=== PATIENT | female | born 1995 | race Caucasian/White ===

== ENCOUNTER 2016-11-02 15:22 | Inpatient (IN) | payer OTHER ==
[~2016-11-02] VITALS: Ht 177.8 cm; Wt 107.0 kg
[2016-11-02] VITALS (8 sets, daily range): BP systolic 126–141; BP diastolic 63–89
[2016-11-02] MEDS ORDERED: PRENTAB9 PO (15:31)
[2016-11-02] MEDS ORDERED: TUMS500C PO (15:33)
[2016-11-02] MEDS ORDERED: miSOPROStol 50 MCG 1/2 TAB (S0191) PV ONE (16:00)
[2016-11-02 17:02] LABS: MEAN CORPUSCULAR HEMOGLOBIN 32.3 pg (27.0-33.0); MEAN CORPUSCULAR HGB CONC 34.5 g/dl (32.0-36.5); MEAN CORPUSCULAR VOLUME 93.5 fl (80.0-96.0); RED CELL DISTRIBUTION WIDTH 12.8 % (11.5-14.5)
[2016-11-02] MEDS ORDERED: PENICILLIN G POTASSIUM IV 5 MU in D5W MINI-BAG PLUS 100 ML IV STA (17:35)
[2016-11-02] MEDS ORDERED: miSOPROStol 50 MCG 1/2 TAB (S0191) PO ONE (23:15)
[2016-11-03] VITALS (52 sets, daily range): BP systolic 111–153; BP diastolic 57–106
[2016-11-03] MEDS ORDERED: ACETAMINOPHEN 500 MG TAB PO ONE (02:00)
[2016-11-03] MEDS ORDERED: PROMETHAZINE INJ 25 MG/ML VIAL (J2550) IV ONE (06:00)
[2016-11-03] MEDS ORDERED: BUTORPHANOL 2 MG/ML INJ (J0595) IV ONE (06:00)
[2016-11-03] MEDS ORDERED: FENTANYL 2MCG/ML ROPIVACAINE 0.2% NACL 250 ML CADD As Ordered ONE (10:05)
[2016-11-03] MEDS: PENICILLIN G POTASSIUM IV 2.5 MU in D5W 100 ML IV SCH ×2 (11:07→14:44)
[2016-11-03] MEDS ORDERED: ePHEDrine SULFATE 25 MG/5 ML(5MG/ML) SYRINGE IV PRN (11:30)
[2016-11-03] MEDS ORDERED: EPIDURAL COMMENT XX SCH (11:30)
[2016-11-03] MEDS ORDERED: FENTANYL/ROPIVACAINE/NACL CADD 250 ML EPIDURAL SCH (11:30)
[2016-11-03] MEDS ORDERED: REFRIGERATOR IV KEYS XX PRN (11:30)
[2016-11-03] MEDS ORDERED: diphenhydrAMINE INJ 50MG/ML VIAL (J1200) IV PRN (11:30)
[2016-11-03] MEDS ORDERED: ONDANSETRON 4MG/2ML VIAL (J2405) IV PRN ×2 (11:30→20:30)
[2016-11-03] MEDS ORDERED: LACTATED RINGER'S 1000 ML IV PRN (11:30)
[2016-11-03] MEDS ORDERED: EPIDURAL/PCA KEYS XX PRN (11:30)
[2016-11-03] MEDS ORDERED: NALOXONE INJ 0.4 MG/1 ML VIAL (J2310) IV PRN (11:30)
[2016-11-03] MEDS ORDERED: LR 1,000 ML IV SCH (11:44)
[2016-11-03] MEDS ORDERED: OXYTOCIN DRIP 30 UNITS in APPROPRIATE DILUENT 1 EA IV SCH ×2 (11:45→20:28)
[2016-11-03] MEDS ORDERED: MEASLES,MUMPS,RUBELLA VACCINE INJ (MMR-II) (90707) SC SCH (20:30)
[2016-11-03] MEDS ORDERED: ACETAMINOPHEN 500 MG TAB PO PRN (20:30)
[2016-11-03] MEDS ORDERED: RHOGAM 300 MCG (1500 IU) INJ (J2790) IM SCH (20:30)
[2016-11-03] MEDS ORDERED: PROMETHAZINE 25 MG TAB PO PRN (20:30)
[2016-11-03] MEDS ORDERED: DIBUCAINE 1% OINTMENT 30GM TOP PRN (20:30)
[2016-11-03] MEDS: IBUPROFEN 800 MG TAB PO PRN (22:00)
[2016-11-03] MEDS: DOCUSATE SODIUM 100 MG CAP PO SCH (22:00)
[2016-11-04 06:21] VITALS: BP 122/75
[2016-11-04] MEDS: DOCUSATE SODIUM 100 MG CAP PO SCH ×2 (08:00→20:45)
[2016-11-04] MEDS: PRENATAL VITAMIN TAB PO SCH (08:01)
[2016-11-04 10:42] VITALS: BP 140/78
[2016-11-04] MEDS: IBUPROFEN 800 MG TAB PO PRN (16:25)
[2016-11-04 18:08] VITALS: BP 123/86
[2016-11-05 05:20] VITALS: BP 136/86
[2016-11-05] MEDS: PRENATAL VITAMIN TAB PO SCH (07:57)
[2016-11-05] MEDS: DOCUSATE SODIUM 100 MG CAP PO SCH (07:57)
--- NOTE | 2016-11-05 08:53 | IPNPDOC ---
Text Note Date of Service The patient was seen on 11/05/16. NOTE PPD#2 s/p S: Pt doing well. Pain well controlled, lochia decreasing/minimal, voiding spontaneously, tolerating a regular diet, ambulating without difficulty. No f/c /n/v/MOORE. Breast feeding with no problems. O: normotensive, nml HR, afebrile H: RRR no m/g/r L: CTA b/l no w/c/r/r Abd: soft, appropriately tender, and FF at U-2cm/fundus nontender Ext: no c/c/e A/P: S/p , PPD#2. Hemodynamically stable, afebrile, good pain control. -discharge to home today -given home meds prior to discharge -instructed to return to clinic in 1 week for a bp check and then a routine 6wk PP visit Dr. Khadijah Lou [place]ZAS VS,Julian, I+O VS, Julian, I+O Vital Signs Date Time Temp Pulse Resp B/P Pulse Ox O2 Delivery O2 Flow Rate FiO2 11/05/16 05:20 98.2 90 16 136/86 11/03/16 06:26 Room Air I&O- Last 24 Hours up to 6 AM 11/05/16 06:00 Intake Total 960 ml Balance 960 ml KHADIJAH LOU MD Nov 05, 2016 08:53
--- NOTE | 2016-11-05 09:00 | DS.PDOC ---
Discharge Summary General Date of Admission Nov 02, 2016 at 15:22 Date of Discharge Nov 05, 2016 Attending Physician: ARLYN JUDGE MD Discharge Summary PROCEDURES PERFORMED DURING STAY: uncomplicated spontaneous vaginal delivery ADMITTING DIAGNOSES: 1. Induction of labor for gestational hypertension at 39wk DISCHARGE DIAGNOSES: 1. Induction of labor for gestational hypertension at 39wk COMPLICATIONS/CHIEF COMPLAINT: Induction. HISTORY OF PRESENT ILLNESS/ HOSPITAL COURSE: Lauren is a 21 year old [id number] status post uncomplicated vaginal delivery at 39w4d after induction of labor for gestational hypertension. After admission, she met criteria for pre- eclampsia withOUT severe features based on proteinuria. She never required IV Mg and never developed any other symptoms of pre-eclampsia. She had a benign post- course with stable vitals and exam on discharge. DISCHARGE MEDICATIONS: tylenol/motrin/colace/lanolin ALLERGIES: Please see below. PHYSICAL EXAMINATION ON DISCHARGE: VITAL SIGNS: Please see below. GENERAL: WDWN, resting comfortably Cardiac: S1S2 present, no murmurs Lungs: CTAB, no wheeze/crackles/rhales Abdomen: soft, non-tender to palpation, fundus firm at u-2cm LABORATORY DATA: Please see below. IMAGING: none ACTIVITY: As tolerated DIET: regular, increase hydration since breast feeding DISCHARGE PLAN: discharge to home DISPOSITION: home DISCHARGE INSTRUCTIONS: 1. Return to clinic in 1 week for blood pressure check, then will have a 6 week visit 2. Vaginal rest for 6 weeks, no heavy lifting greater than weight of baby 3. Return sooner for: fevers/chills, heavy vaginal bleeding soaking >1 pad per hour, foul smelling vaginal discharge, headaches that do not go away with rest/ hydration/tylenol or sparklers in your vision DISCHARGE CONDITION: Stable TIME SPENT ON DISCHARGE: Greater than 20 minutes. Vital Signs/I&Os Vital Signs Date Time Temp Pulse Resp B/P Pulse Ox O2 Delivery O2 Flow Rate FiO2 11/05/16 05:20 98.2 90 16 136/86 11/03/16 06:26 Room Air I&O- Last 24 Hours up to 6 AM 11/05/16 06:00 Intake Total 960 ml Balance 960 ml Discharge Medications Scheduled Multivitamins/ ( 27-0.8 mg) 1 Tab Tab 1 TAB PO DAILY (Reported ) Miscellaneous Medications Calcium Carbonate (Tums) 500 Mg Chw 500 MG PO (Reported) Allergies Coded Allergies: No Known Allergies (Unverified , 11/02/16) ARLYN JUDGE MD Nov 05, 2016 09:00
[2016-11-05] MEDS ORDERED: ACET50TA PO (09:32)
[2016-11-05] MEDS ORDERED: IBUP-1114 PO (09:32)
== END 2016-11-05 11:45 | disposition home or self-care (01) | DRG 775 ==
LOC: M LDI 15:22 → M OBS 11-03 21:22
PROVIDERS: ADMIT Advanced Practice Midwife; ATTEND Obstetrics & Gynecology
PROC: 3E0P7GC Introduction of Other Therapeutic Substance into Female Reproductive, Via Natural or Artificial Opening (ICD-10-PCS; 2016-11-02)
PROC: 10E0XZZ Delivery of Products of Conception, External Approach (ICD-10-PCS; principal; 2016-11-04)
PROC: 0KQM0ZZ Repair Perineum Muscle, Open Approach (ICD-10-PCS; 2016-11-04)
DX: O13.4 Gestational [pregnancy-induced] hypertension without significant proteinuria, complicating childbirth (principal); O99.214 Obesity complicating childbirth; Z3A.39 39 weeks gestation of pregnancy; E66.9 Obesity, unspecified; Z68.32 Body mass index [BMI] 32.0-32.9, adult; O14.04 Mild to moderate pre-eclampsia, complicating childbirth; O99.824 Streptococcus B carrier state complicating childbirth; O70.1 Second degree perineal laceration during delivery; Z37.0 Single live birth

== ENCOUNTER → 2016-11-02 | Outpatient (CLI) | payer OTHER ==
[~2016-11-02] MED LIST: PRENTAB9 PO; TUMS500C PO
== END ==
LOC: M LAB 10:22
PROVIDERS: ATTEND Advanced Practice Midwife
DX: Z36 Encounter for antenatal screening of mother (principal)

== ENCOUNTER 2017-07-14 15:17 | Emergency (ER) | payer OTHER ==
[~2017-07-14] VITALS: Ht 177.8 cm; Wt 98.6 kg
[~2017-07-14 15:17] MED LIST changes: +ACET50TA PO; +IBUP-1114 PO
[2017-07-14] MEDS ORDERED: NS 1,000 ML IV ONE (16:15)
[2017-07-14] MEDS ORDERED: ONDANSETRON 4MG/2ML VIAL (J2405) IV ONE (16:15)
[2017-07-14] MEDS ORDERED: MORPHINE 2 MG/ML 1ML SYRINGE IV PRN (16:15)
[2017-07-14 16:50] LABS: BASO % 0.3 % (0.0-1.0); EOS % 0.1 % (0.0-3.0); IMMATURE GRANULOCYTE % 0.2 % (0-0); LYMPH % 18.9 % (24.0-44.0); MEAN CORPUSCULAR HEMOGLOBIN 29.6 pg (27.0-33.0); MEAN CORPUSCULAR HGB CONC 33.6 g/dl (32.0-36.5); MEAN CORPUSCULAR VOLUME 88.1 fl (80.0-96.0); MONO # 0.5 10^3/uL (0.0-0.8); MONO % 4.3 % (0.0-5.0); NEUTROPHILS # 8.2 10^3/uL (1.8-7.7); NEUTROPHILS % 76.2 % (36.0-66.0); PLATELET COUNT, AUTOMATED 354 10^3/uL (150-450); RED CELL DISTRIBUTION WIDTH 12.2 % (11.5-14.5); WHITE BLOOD COUNT 10.7 10^3/uL (4.0-10.0)
[2017-07-14 17:12] LABS: ALBUMIN 3.7 GM/DL (3.2-5.2); ALBUMIN/GLOBULIN RATIO 0.97 (1.00-1.93); ALKALINE PHOSPHATASE 82 U/L (45-117); ALT/SGPT 22 U/L (12-78); ANION GAP 6 MEQ/L (8-16); AST/SGOT 9 U/L (7-37); BILIRUBIN,DIRECT < 0.1 MG/DL (0.0-0.2); BILIRUBIN,TOTAL 0.3 MG/DL (0.2-1.0); BLOOD UREA NITROGEN 7 MG/DL (7-18); CALCIUM LEVEL 9.5 MG/DL (8.5-10.1); CARBON DIOXIDE LEVEL 30 MEQ/L (21-32); CHLORIDE LEVEL 103 MEQ/L (98-107); CREATININE FOR GFR 0.67 MG/DL (0.55-1.02); GLOMERULAR FILTRATION RATE > 60.0 (>60); GLUCOSE, FASTING 88 MG/DL (70-105); SODIUM LEVEL 139 MEQ/L (136-145); TOTAL PROTEIN 7.5 GM/DL (6.4-8.2)
[2017-07-14] MEDS ORDERED: ISOVUE-370 76% 100ML VIAL (Q9967) As Ordered ONE (17:24)
--- NOTE | 2017-07-14 18:27 | REP ---
CT ABDOMEN AND PELVIS WITH CONTRAST: HISTORY: Right lower quadrant pain. CONTRAST: Isovue-370 75 mL. COMPARISON: 05/22/2015. The liver, gallbladder, pancreas, spleen, adrenal glands and kidneys are normal in appearance. There is no mass, adenopathy, or free fluid. The visualized lungs are clear. The urinary bladder and uterus are normal in appearance. IMPRESSION: Normal CT abdomen and pelvis. Signed by Steven Bartlett MD 07/14/2017 06:55 P
[2017-07-14] MEDS ORDERED: ZOFR4TAB3 PO (18:32)
[2017-07-14 18:42] VITALS: BP 132/70
== END 2017-07-14 18:46 | disposition home or self-care (01) ==
LOC: M ED 15:17 → EDBD 15:17 → M ED 18:46
DX: K52.9 Noninfective gastroenteritis and colitis, unspecified (principal); F33.9 Major depressive disorder, recurrent, unspecified; Z79.3 Long term (current) use of hormonal contraceptives
CPT/HCPCS: 74177; 80048; 80076; 81001; 81025; 83605; 83690; 85025; 96361; 96374; 96375; 99284; J2405; Q9967

== ENCOUNTER → 2018-01-16 | Outpatient (REF) | payer OTHER | LOC: M SFHCLERA 10:59 | DX: J02.9 Acute pharyngitis, unspecified (principal) ==

== ENCOUNTER → 2018-10-26 | Outpatient (REF) | payer OTHER ==
[~2018-10-26] MED LIST changes: -ACET50TA PO; +MAPA500T2 PO; +ZOFR4TAB14 PO
[2018-10-26 12:32] LABS: INFLUENZA A AMPLIFICATION NEGATIVE (NEGATIVE); INFLUENZA B AMPLIFICATION NEGATIVE (NEGATIVE)
== END ==
LOC: M LAB REF 11:41
PROVIDERS: ATTEND Physician Assistant
DX: J11.1 Influenza due to unidentified influenza virus with other respiratory manifestations (principal)